=== PATIENT | female | born 1950 | race Caucasian/White ===

== ENCOUNTER 2018-06-22 19:56 | Emergency (ER) | payer MEDICARE, OTHER ==
[2018-06-22 20:04] VITALS: BP 123/80; PULSE 100; RESP 20; TEMP 98.1
[2018-06-22] MEDS ORDERED: CEPHALEXIN 500MG STARTER PACK 4 CAP BTL PO STA (20:25)
--- NOTE | 2018-06-22 20:33 | ED ---
General Adult HPI - General Chief complaint: Extremity Injury, Lower Stated complaint: Leg laceration Time Seen by Provider: 06/22/18 20:13 Source: patient, RN notes reviewed Mode of arrival: ambulatory - History of Present Illness Initial comments: 68-year-old female presents to the emergency department for a chief complaint of injury to the left lower leg. Patient states that about 4 days ago she was walking in her house and accidentally walked into piece of exercise agreement. Patient states it caused a small skin tear of the left leg. Patient states she did not have significant pain however today noticed that it started to have spreading erythema around the area. Patient denies fevers or chills. Denies any streaking redness. Denies any difficulty walking on the leg. Denies any pain with movement of the ankle or knee. No calf pain. Patient has no other complaints at this time including shortness of breath, chest pain, abdominal pain, nausea or vomiting, headache, or visual changes. - Related Data Previous Rx's Medication Instructions Recorded Cephalexin [Keflex] 500 mg PO Q6HR 10 Days cap 06/22/18 Fluconazole [Diflucan] 150 mg PO ONCE PRN #1 tab 06/22/18 Allergies Allergy/AdvReac Type Severity Reaction Status Date / Time codeine AdvReac Nausea & Verified 06/22/18 20:05 Vomiting Review of Systems ROS Statement: Those systems with pertinent positive or pertinent negative responses have been documented in the HPI. ROS Other: All systems not noted in ROS Statement are negative. Past Medical History Additional Past Medical History / Comment(s): celiac disease History of Any Multi-Drug Resistant Organisms: None Reported Past Surgical History: Cholecystectomy Past Psychological History: No Psychological Hx Reported Smoking Status: Never smoker Past Alcohol Use History: Rare Past Drug Use History: None Reported General Exam General appearance: alert, in no apparent distress Head exam: Present: atraumatic, normocephalic, normal inspection Eye exam: Present: normal appearance, PERRL, EOMI. Absent: scleral icterus, conjunctival injection, periorbital swelling ENT exam: Present: normal exam, mucous membranes moist Neck exam: Present: normal inspection, full ROM. Absent: tenderness, meningismus, lymphadenopathy Respiratory exam: Present: normal lung sounds bilaterally. Absent: respiratory distress, wheezes, rales, rhonchi, stridor Cardiovascular Exam: Present: regular rate, normal rhythm, normal heart sounds. Absent: systolic murmur, diastolic murmur, rubs, gallop, clicks Extremities exam: Present: full ROM (Full range motion of the left ankle and knee), tenderness (Minimal tenderness over the area of erythema), normal capillary refill (In the left lower extremity, DP pulse 2+), other (There is a 3 x 6 cm area of erythema surrounding a small skin tear consistent with cellulitis). Absent: pedal edema, joint swelling, calf tenderness Neurological exam: Present: alert, oriented X3, CN II-XII intact Psychiatric exam: Present: normal affect, normal mood Course Vital Signs 06/22/18 20:00 Temperature 98.1 F Pulse Rate 100 Respiratory 20 Rate Blood Pressure 123/80 O2 Sat by Pulse 98 Oximetry Medical Decision Making - Medical Decision Making 60-year-old female presents to the emergency department for a chief complaint of injury to the left lower leg. Patient accidentally hit her leg on exercise department 4 days ago. She started to notice spreading redness and became con cerned for infection. On exam patient is afebrile and has not had any fevers. Patient does have a small skin tear about 1 cm in size noted to the left anterior lower leg. It is also has an area of 3 x 6 cm of spreading redness consistent with cellulitis. Patient will be treated with Keflex for this. Neurovascular status intact. Exam otherwise unremarkable. Patient able to ambulate on it without difficulty. Patient was educated to watch for this worsening. She understands it probably will worsen somewhat in the next 24 hours but should not worsen significantly and thereafter should improve. She will return here if symptoms are not improving. She will follow up with primary care in 1-2 days otherwise. Disposition Clinical Impression: Cellulitis of left leg Disposition: HOME SELF-CARE Condition: Good Instructions (If sedation given, give patient instructions): Cellulitis (ED) Additional Instructions: Please take Keflex as directed. Please follow-up with primary care in 1-2 days. Return here to the emergency department if you have any worsening symptoms or redness is not improving. Prescriptions: Fluconazole [Diflucan] 150 mg PO ONCE PRN #1 tab PRN Reason: vaginitis Cephalexin [Keflex] 500 mg PO Q6HR 10 Days cap Is patient prescribed a controlled substance at d/c from ED?: No Referrals: Gilberto Godinez MD [REFERRING] - 1-2 days Time of Disposition: 20:29
== END 2018-06-22 20:50 | disposition home or self-care (01) ==
LOC: EC 19:56
DX: L03.116 Cellulitis of left lower limb (principal); S81.812A Laceration without foreign body, left lower leg, initial encounter; Z90.49 Acquired absence of other specified parts of digestive tract; Z88.5 Allergy status to narcotic agent; W22.09XA Striking against other stationary object, initial encounter; Y92.009 Unspecified place in unspecified non-institutional (private) residence as the place of occurrence of the external cause; Y93.01 Activity, walking, marching and hiking
CPT/HCPCS: 99282

== ENCOUNTER 2018-08-20 09:05 | Emergency (ER) | payer MEDICARE, OTHER ==
[2018-08-20] MEDS ORDERED: ACETAMINOPHEN TAB 325 MG TAB PO STA (10:11)
--- NOTE | 2018-08-20 10:14 | ED ---
General Adult HPI - General Chief complaint: Extremity Injury, Upper Stated complaint: finger injury Time Seen by Provider: 08/20/18 09:43 Source: patient, RN notes reviewed Mode of arrival: ambulatory Limitations: no limitations - History of Present Illness Initial comments: 68-year-old female presents to the emergency department for a chief complaint of finger injury. Patient states that about 2 months ago she fell and injured her right fourth digit. States that it was healing and doing much better however about one week ago she bumped it on the counter. States that since that time as a much more painful. States the pain is mostly in the PIP joint. States is painful to bend at the PIP joint. States there is some small amount of ecchymosis present. Denies any other injuries. Denies falling or hitting her head.Patient has no other complaints at this time including shortness of breath, chest pain, abdominal pain, nausea or vomiting, headache, or visual changes. - Related Data Home Medications Medication Instructions Recorded Confirmed Naproxen Sodium [Aleve] 440 mg PO DAILY PRN 08/20/18 08/20/18 Allergies Allergy/AdvReac Type Severity Reaction Status Date / Time codeine AdvReac Nausea & Verified 08/20/18 09:57 Vomiting Review of Systems ROS Statement: Those systems with pertinent positive or pertinent negative responses have been documented in the HPI. ROS Other: All systems not noted in ROS Statement are negative. Past Medical History Additional Past Medical History / Comment(s): celiac disease History of Any Multi-Drug Resistant Organisms: None Reported Past Surgical History: Cholecystectomy Past Psychological History: No Psychological Hx Reported Smoking Status: Never smoker Past Alcohol Use History: Rare Past Drug Use History: None Reported General Exam Limitations: no limitations General appearance: alert, in no apparent distress Head exam: Present: atraumatic, normocephalic, normal inspection Eye exam: Present: normal appearance, PERRL, EOMI. Absent: scleral icterus, conjunctival injection, periorbital swelling ENT exam: Present: normal exam, mucous membranes moist Neck exam: Present: normal inspection, full ROM. Absent: tenderness, meningismus, lymphadenopathy Respiratory exam: Present: normal lung sounds bilaterally. Absent: respiratory distress, wheezes, rales, rhonchi, stridor Cardiovascular Exam: Present: regular rate, normal rhythm, normal heart sounds. Absent: systolic murmur, diastolic murmur, rubs, gallop, clicks Extremities exam: Present: tenderness (Tenderness noted over the PIP joint of the right fourth digit), normal capillary refill (Capillary refill less than 2 seconds, radial pulse 2+), other (Sensation intact in the right fourth digit). Absent: full ROM (Patient has full range motion in the DIP joint and MCP joint. She does have some limited range of motion with 45 flexion in the PIP joint of the right fourth digit), pedal edema, joint swelling, calf tenderness Neurological exam: Present: alert, oriented X3, CN II-XII intact Psychiatric exam: Present: normal affect, normal mood Course Vital Signs 08/20/18 09:37 Temperature 97.9 F Pulse Rate 85 Respiratory 16 Rate Blood Pressure 126/75 O2 Sat by Pulse 96 Oximetry Medical Decision Making - Medical Decision Making 60-year-old female presents for right fourth digit pain after hitting a week ago following an injury 2 months ago. She does have some decreased range of motion in the PIP joint but is able to flex it about 45. Minimal edema noted over the fourth IP joint. No erythema or pain noted on the volar finger. No increased warmth. No evidence of infection. Neurovascular status is intact. X-ray shows no acute displaced fracture or dislocation. Patient may have contusion of the finger. At this time discussed Tylenol use for pain as patient cannot take Motrin. Discussed icing the area and following up with primary care orthopedics. Discussed returning here if she has any worsening symptoms. Disposition Clinical Impression: Finger pain, right Disposition: HOME SELF-CARE Condition: Good Instructions (If sedation given, give patient instructions): Finger Sprain (ED) Additional Instructions: Please take Tylenol for pain. You may ice the area. You may wear brace if it is bothering you but try not to immobilize it completely for extended periods. Follow-up with primary care or orthopedics in one to 2 days. Return here if you have any worsening symptoms. Is patient prescribed a controlled substance at d/c from ED?: No Referrals: Ashanti Alvarez MD [STAFF PHYSICIAN] - 1-2 days Sandeep Oliveros MD [Medical Doctor] - 1-2 days Time of Disposition: 10:52
--- NOTE | 2018-08-20 10:23 | XR ---
EXAMINATION TYPE: XR finger RT DATE OF EXAM: 08/20/2018 CLINICAL HISTORY: pain right fourth digit. TECHNIQUE: 3 views of the right fourth digit are submitted. COMPARISON: None FINDINGS: No displaced fracture is seen with certainty. Joint spaces are well-preserved. Correlate for soft tissue injury. IMPRESSION: No acute displaced fracture or dislocation.
[2018-08-20 11:19] VITALS: BP 123/88; PULSE 80; RESP 18; TEMP 97.2
== END 2018-08-20 11:19 | disposition home or self-care (01) ==
LOC: EC 09:05
DX: M79.644 Pain in right finger(s) (principal); R60.0 Localized edema; Z88.5 Allergy status to narcotic agent; W22.8XXA Striking against or struck by other objects, initial encounter
CPT/HCPCS: 99283

== ENCOUNTER → 2019-08-24 | Outpatient (CLI) | payer MEDICARE, OTHER ==
--- NOTE | 2019-08-24 15:22 | XR ---
EXAMINATION TYPE: XR lumbar spine 2 or 3V DATE OF EXAM: 08/24/2019 CLINICAL HISTORY: Pain. TECHNIQUE: Frontal and lateral images of the lumbar spine are obtained. COMPARISON: None FINDINGS: There are 5 lumbar type vertebral bodies identified. Osseous structures somewhat demineral ized. Satisfactory alignment seen. Fairly moderate multilevel disc space narrowing with mild multilev el anterior spurring. No acute displaced fracture. Sacroiliac joints preserved. Some vascular calcula tion overlying abdominal aorta. IMPRESSION: As above.
--- NOTE | 2019-08-24 15:56 | XR ---
EXAMINATION TYPE: XR cervical spine limited DATE OF EXAM: 08/24/2019 COMPARISON: NONE HISTORY: Pain TECHNIQUE: 3 views are submitted. FINDINGS: The odontoid is intact. There are no compression deformities. The prevertebral soft tissue structur es are within normal limits. There is severe degenerative disc disease C4-5 and C5 densities with mo derate changes at C6-C7. Multilevel facet arthropathy. IMPRESSION: 1. Multilevel degenerative disc disease and facet arthropathy.
== END | disposition home or self-care (01) ==
LOC: RADXRMAIN 14:55
PROVIDERS: ATTEND Chiropractor
DX: M99.73 Connective tissue and disc stenosis of intervertebral foramina of lumbar region (principal); M50.321 Other cervical disc degeneration at C4-C5 level; M47.812 Spondylosis without myelopathy or radiculopathy, cervical region
CPT/HCPCS: 72040; 72100

== ENCOUNTER 2019-08-26 22:32 | Emergency (ER) | payer MEDICARE, OTHER ==
[2019-08-26 22:49] VITALS: RESP 18; TEMP 98
--- NOTE | 2019-08-26 23:48 | ED ---
Extremity Problem HPI - General Chief complaint: Extremity Problem,Nontraumatic Stated complaint: Lt foot pain/injury Time Seen by Provider: 08/26/19 22:55 Source: patient Mode of arrival: ambulatory Limitations: no limitations - History of Present Illness Initial comments: Patient is 69-year-old female presenting to the emergency department with a hermelinda f complaint of leg pain. Patient reports about one week ago she twisted to her left ankle. Patient reports initially was asymptomatic but now she has developed pain in her ankle and knee. States around the same time she is also developed cramping and pain the left calf. Patient states prior to onset of symptoms earlier today, she was mowing the grass. She does report history of arthritis and occasionally gets flareups in her lower extremity joints. Patient denies any chest pain or shortness of breath. Denies any history of blood clots. - Related Data Home Medications Medication Instructions Recorded Confirmed Naproxen Sodium [Aleve] 440 mg PO DAILY PRN 08/20/18 08/20/18 Allergies Allergy/AdvReac Type Severity Reaction Status Date / Time codeine AdvReac Nausea & Verified 08/26/19 22:48 Vomiting Review of Systems ROS Statement: Those systems with pertinent positive or pertinent negative responses have been documented in the HPI. ROS Other: All systems not noted in ROS Statement are negative. Past Medical History Additional Past Medical History / Comment(s): celiac disease History of Any Multi-Drug Resistant Organisms: None Reported Past Surgical History: Cholecystectomy Past Psychological History: No Psychological Hx Reported Smoking Status: Never smoker Past Alcohol Use History: Rare Past Drug Use History: None Reported General Exam Limitations: no limitations General appearance: alert, in no apparent distress, obese Head exam: Present: atraumatic, normocephalic, normal inspection Eye exam: Present: normal appearance, PERRL, EOMI Pupils: Present: normal accommodation ENT exam: Present: normal exam, normal oropharynx, mucous membranes moist Neck exam: Present: normal inspection, full ROM Respiratory exam: Present: normal lung sounds bilaterally Cardiovascular Exam: Present: regular rate, normal rhythm, normal heart sounds Extremities exam: Present: full ROM, tenderness (Medial and lateral malleoli tenderness), normal capillary refill, pedal edema (+1 pitting edema.), calf tenderness (Left calf tenderness.), other (+2 dorsalis pedis posterior tibialis bilaterally. No overlying skin changes.). Absent: normal inspection Back exam: Present: normal inspection, full ROM Neurological exam: Present: alert, oriented X3 Psychiatric exam: Present: normal affect, normal mood Skin exam: Present: warm, dry, intact, normal color Course Vital Signs 08/26/19 08/27/19 22:46 00:48 Temperature 98 F 98 F Pulse Rate 91 89 Respiratory 18 18 Rate Blood Pressure 110/57 112/60 O2 Sat by Pulse 97 98 Oximetry Medical Decision Making - Medical Decision Making Patient is 69-year-old female presenting to emergency Department with a chief complaint of leg pain. On exam patient does have mild swelling at the left ankle with mild medial and lateral malleoli tenderness. Full range of motion the ankle. Foot exam unremarkable. She also has left calf tenderness and a cramping sensation. Doesn't have any shortness of breath or chest pain. Ultrasound Doppler performed on the left lower extremity reveals no signs of a DVT. Ankle x-ray reveals no signs of acute fracture or dislocations. I suspect the patient's symptoms are secondary to mowing the lawn prior to onset of symptoms. Patient advised to elevate the foot and alternate between Tylenol and Motrin for pain control. Advised to apply ice compress to minimize his symptoms. Advised to follow primary care. Return parameters thoroughly discussed the patient was understanding and agreeable. Case discussed with physician. Disposition Clinical Impression: Ankle pain, Left leg swelling Disposition: HOME SELF-CARE Condition: Stable Instructions (If sedation given, give patient instructions): Arthralgia (ED), Swollen Joint (ED) Additional Instructions: Follow with her primary care. Alternate between Tylenol and Motrin for pain control. Keep the leg elevated and apply ice compress to the left ankle. Return to emergency department if symptoms worsen. Is patient prescribed a controlled substance at d/c from ED?: No Referrals: Marlo Norris MD [Primary Care Provider] - 1-2 days Time of Disposition: 00:19
--- NOTE | 2019-08-27 00:12 | US ---
EXAMINATION TYPE: US venous doppler duplex LE LT DATE OF EXAM: 08/26/2019 11:14 PM COMPARISON: NONE CLINICAL HISTORY: Cramping in bilateral leg swelling. SIDE PERFORMED: Left TECHNIQUE: The lower extremity deep venous system is examined utilizing real time linear array sonog odessa with graded compression, doppler sonography and color-flow sonography. VESSELS IMAGED: External Iliac Vein (EIV) Common Femoral Vein Deep Femoral Vein Greater Saphenous Vein * Femoral Vein Popliteal Vein Small Saphenous Vein * Proximal Calf Veins (* superficial vessels) Left Leg: Negative for DVT IMPRESSION: No evidence of deep vein thrombosis in the left leg.
--- NOTE | 2019-08-27 00:27 | XR ---
EXAMINATION TYPE: XR ankle complete LT DATE OF EXAM: 08/27/2019 COMPARISON: NONE HISTORY: Pain TECHNIQUE: 3 views FINDINGS: Ankle mortise is anatomic. I see no fracture nor dislocation. Joint spaces are fairly claudia l. There is mild soft tissue swelling around the ankle. IMPRESSION: Mild soft tissue swelling. No fracture seen.
[2019-08-27 00:49] VITALS: BP 112/60; PULSE 89
== END 2019-08-27 00:50 | disposition home or self-care (01) ==
LOC: EC 22:32
DX: M25.572 Pain in left ankle and joints of left foot (principal); M25.472 Effusion, left ankle; M19.90 Unspecified osteoarthritis, unspecified site; Z79.1 Long term (current) use of non-steroidal anti-inflammatories (NSAID); Z88.5 Allergy status to narcotic agent
CPT/HCPCS: 99284

== ENCOUNTER → 2019-09-12 | Outpatient (CLI) | payer MEDICARE, OTHER ==
--- NOTE | 2019-09-12 15:54 | XR ---
EXAMINATION TYPE: XR knee complete LT DATE OF EXAM: 09/12/2019 COMPARISON: NONE HISTORY: Pain TECHNIQUE: Three views are submitted. FINDINGS: Diffuse osteopenia with moderate narrowing of the medial compartment knee joint and hypertrophic spur ring. Small amount of fluid in the suprapatellar bursa with arthropathy of the patellofemoral joint. Osseous structures are intact. No acute fracture seen. IMPRESSION: 1. No acute fracture or dislocation. 2. Small amount of fluid in the suprapatellar bursa. 3. Arthropathy
== END | disposition home or self-care (01) ==
LOC: RADXRMAIN 15:19
PROVIDERS: ATTEND Internal Medicine
DX: M12.862 Other specific arthropathies, not elsewhere classified, left knee (principal)

== ENCOUNTER → 2020-01-02 | Outpatient (CLI) | payer MEDICARE, OTHER ==
--- NOTE | 2020-01-16 11:00 | MM ---
Reason for exam: screening (asymptomatic). Last mammogram was performed 2 years ago. History: Patient is postmenopausal. Physical Findings: A clinical breast exam by your physician is recommended on an annual basis and results should be correlated with mammographic findings. MG 3D Screening Mammo W/Cad Bilateral CC and MLO view(s) were taken. Prior study comparison: December 31, 2017, mammogram, performed at [place]. September 21, 2013, mammogram, performed at [place]. There are scattered fibroglandular densities. Benign appearing bilateral calcifications. No significant changes when compared with prior studies. ASSESSMENT: Benign, BI-RAD 2 RECOMMENDATION: Routine screening mammogram of both breasts in 1 year.
== END | disposition home or self-care (01) ==
LOC: RADMAMWWP 09:25
PROVIDERS: ATTEND Family Medicine
DX: Z12.31 Encounter for screening mammogram for malignant neoplasm of breast (principal)
CPT/HCPCS: 77063; 77067

== ENCOUNTER → 2020-03-01 | Outpatient (CLI) | payer MEDICARE, OTHER ==
--- NOTE | 2020-03-01 15:31 | XR ---
EXAMINATION TYPE: XR chest 2V DATE OF EXAM: 03/01/2020 COMPARISON: NONE TECHNIQUE: PA and lateral views submitted. HISTORY: Shortness of breath FINDINGS: The lungs are clear and there is no pneumothorax, pleural effusion, or focal pneumonia. Heart size normal. No overt failure. Mild hyperinflation. Degenerative change of the spine. Atherosclerotic rangel ge aorta. IMPRESSION: 1. No acute process.
== END | disposition home or self-care (01) ==
LOC: RADXRMAIN 14:31
PROVIDERS: ATTEND Family Medicine
DX: U07.1 COVID-19 (principal); J45.20 Mild intermittent asthma, uncomplicated; R06.02 Shortness of breath
CPT/HCPCS: 71046

== ENCOUNTER 2020-12-02 13:03 | Emergency (ER) | payer MEDICARE ==
--- NOTE | 2020-12-02 13:34 | ED ---
Skin/Abscess/FB HPI - General Chief complaint: Skin/Abscess/Foreign Body Stated complaint: rash on legs Time Seen by Provider: 12/02/20 13:10 Source: patient, RN notes reviewed Mode of arrival: ambulatory Limitations: no limitations - History of Present Illness Initial comments: Patient is a pleasant 70-year-old female presenting to the emergency Department with concerns for rash to bilateral lower legs. Onset of symptoms was around 10 days ago. Patient questioned if she had ringworm and has been using Lotrimin without any improvement. Patient states it is mildly irritated/itchy. No history of similar symptoms previously. Patient had 2 episodes of loose stools/diarrhea. No fevers however patient feels chilled at times. Patient has been checking her temperature. - Related Data Home Medications Medication Instructions Recorded Confirmed Naproxen Sodium [Aleve] 440 mg PO DAILY PRN 08/20/18 08/20/18 Previous Rx's Medication Instructions Recorded Cephalexin [Keflex] 500 mg PO QID #40 cap 12/02/20 Allergies Allergy/AdvReac Type Severity Reaction Status Date / Time codeine AdvReac Nausea & Verified 12/02/20 13:05 Vomiting Review of Systems ROS Statement: Those systems with pertinent positive or pertinent negative responses have been documented in the HPI. ROS Other: All systems not noted in ROS Statement are negative. Constitutional: Reports: as per HPI, chills. Denies: fever Eyes: Denies: eye pain ENT: Denies: ear pain Respiratory: Denies: cough Cardiovascular: Denies: chest pain Endocrine: Denies: fatigue Gastrointestinal: Reports: as per HPI, nausea. Denies: abdominal pain, vomiting Genitourinary: Denies: dysuria Skin: Reports: as per HPI, rash Past Medical History Past Medical History: No Reported History Additional Past Medical History / Comment(s): celiac disease History of Any Multi-Drug Resistant Organisms: None Reported Past Surgical History: Appendectomy, Cholecystectomy Past Psychological History: No Psychological Hx Reported Smoking Status: Never smoker Past Alcohol Use History: None Reported Past Drug Use History: None Reported General Exam Limitations: no limitations General appearance: alert, in no apparent distress Head exam: Present: normocephalic Eye exam: Present: normal appearance Neck exam: Present: normal inspection Respiratory exam: Present: normal lung sounds bilaterally Cardiovascular Exam: Present: regular rate, normal rhythm GI/Abdominal exam: Present: soft. Absent: tenderness Extremities exam: Present: other (Bilateral anterior regalado erythema, right greater than left.). Absent: pedal edema, calf tenderness Neurological exam: Present: alert Psychiatric exam: Present: normal affect, normal mood Skin exam: Present: erythema Course Vital Signs 12/02/20 13:05 Temperature 97.9 F Pulse Rate 96 Respiratory 20 Rate Blood Pressure 113/81 O2 Sat by Pulse 98 Oximetry Medical Decision Making - Medical Decision Making Erythema appears more similar to cellulitis than ringworm infection. Patient updated regarding this. Disposition Clinical Impression: Cellulitis Disposition: HOME SELF-CARE Condition: Stable Instructions (If sedation given, give patient instructions): Cellulitis (ED) Additional Instructions: Please follow-up with primary care physician in the next couple days for recheck. Prescription for antibiotics has been sent to your pharmacy. [id number] antibiotic ointment. Return for pain or fevers, worsening or changing symptoms or other concerns. Prescriptions: Cephalexin [Keflex] 500 mg PO QID #40 cap Is patient prescribed a controlled substance at d/c from ED?: No Referrals: Balbir Diana [Primary Care Provider] - 1-2 days Time of Disposition: 13:33
[2020-12-02 14:53] VITALS: BP 138/88; PULSE 80; RESP 18; TEMP 98
== END 2020-12-02 14:53 | disposition home or self-care (01) ==
LOC: EC 13:03
DX: L03.116 Cellulitis of left lower limb (principal); L03.115 Cellulitis of right lower limb; Z88.5 Allergy status to narcotic agent

== ENCOUNTER 2021-03-14 20:06 | Emergency (ER) | payer MEDICARE ==
[2021-03-14 20:14] VITALS: TEMP 98.6
[2021-03-14] MEDS ORDERED: SODIUM CHLORIDE 0.9% 1,000 ML IV STA (20:50)
[2021-03-14] MEDS ORDERED: ONDANSETRON 4 MG/2 ML VIAL IVP STA (20:50)
[2021-03-14 21:14] LABS: Basophils # (A) 0.1 k/uL (0-0.2); Basophils % (A) 1 %; Eosinophils # (A) 0.2 k/uL (0-0.7); Eosinophils % (A) 2 %; HCT 44.3 % (34.0-46.0); HGB 14.7 gm/dL (11.4-16.0); Lymphocytes % (A) 42 %; MCH 30.1 pg (25.0-35.0); MCHC 33.1 g/dL (31.0-37.0); MCV 90.9 fL (80.0-100.0); Monocytes # (A) 0.3 k/uL (0-1.0); Monocytes % (A) 3 %; Neutrophils # (A) 4.9 k/uL (1.3-7.7); Neutrophils % (A) 51 %; Platelet Count 276 k/uL (150-450); RBC 4.87 m/uL (3.80-5.40); WBC 9.5 k/uL (3.8-10.6)
[2021-03-14 21:29] LABS: Albumin 4.3 g/dL (3.5-5.0); Calcium 9.2 mg/dL (8.4-10.2); Potassium 3.5 mmol/L (3.5-5.1); Total Bilirubin 0.6 mg/dL (0.2-1.3); Total Protein 7.7 g/dL (6.3-8.2)
--- NOTE | 2021-03-14 21:40 | ED ---
Recheck HPI - General Source: patient, RN notes reviewed Mode of arrival: ambulatory Limitations: no limitations <Jerson Cruz - Last Filed: 03/14/21 21:35> <Shweta Loco - Last Filed: 03/18/21 23:40> - General Chief Complaint: Recheck/Abnormal Lab/Rx Stated Complaint: Diarrhea,Headache Time Seen by Provider: 03/14/21 20:17 - History of Present Illness Initial Comments: Patient is a 70-year-old female that presents to the emergency department complaining of several weeks on and off diarrhea. She notes she had an email from [employer] stating that there was a voluntary recall on some produce due to listeria. She notes that she can't track of her symptoms and is been having off and on. She came to the emergency room to get evaluated. Patient was otherwise well-appearing. She noted that she had 1-2 loose stools over the last week. She denied any chest pain shortness of breath headache nausea vomiting c onstipation fever fatigue chills. (Jerson Cruz) - Related Data Home Medications Medication Instructions Recorded Confirmed Naproxen Sodium [Aleve] 440 mg PO DAILY PRN 08/20/18 08/20/18 Previous Rx's Medication Instructions Recorded Cephalexin [Keflex] 500 mg PO QID #40 cap 12/02/20 Ciprofloxacin HCl [Cipro] 500 mg PO Q12HR 7 Days #14 tablet 03/14/21 Fluconazole [Diflucan] 150 mg PO ONCE #2 tab 03/14/21 Allergies Allergy/AdvReac Type Severity Reaction Status Date / Time codeine AdvReac Nausea & Verified 03/14/21 20:14 Vomiting Review of Systems ROS Other: All systems not noted in ROS Statement are negative. <Jerson Cruz - Last Filed: 03/14/21 21:35> ROS Other: All systems not noted in ROS Statement are negative. <Shweta Loco - Last Filed: 03/18/21 23:40> ROS Statement: Those systems with pertinent positive or pertinent negative responses have been documented in the HPI. Past Medical History Past Medical History: No Reported History Additional Past Medical History / Comment(s): celiac disease History of Any Multi-Drug Resistant Organisms: None Reported Past Surgical History: Appendectomy, Cholecystectomy Past Psychological History: No Psychological Hx Reported Smoking Status: Never smoker Past Alcohol Use History: None Reported Past Drug Use History: None Reported <Jerson Cruz - Last Filed: 03/14/21 21:35> General Exam Limitations: no limitations General appearance: alert, in no apparent distress Head exam: Present: atraumatic, normocephalic, normal inspection Eye exam: Present: normal appearance, PERRL, EOMI. Absent: scleral icterus, conjunctival injection, periorbital swelling ENT exam: Present: normal exam, mucous membranes moist Neck exam: Present: normal inspection Respiratory exam: Present: normal lung sounds bilaterally. Absent: respiratory distress, wheezes, rales, rhonchi, stridor Cardiovascular Exam: Present: regular rate, normal rhythm, normal heart sounds. Absent: systolic murmur, diastolic murmur, rubs, gallop, clicks GI/Abdominal exam: Present: soft, normal bowel sounds. Absent: distended, tenderness, guarding, rebound, rigid Extremities exam: Present: normal inspection, full ROM, normal capillary refill. Absent: tenderness, pedal edema, joint swelling, calf tenderness Neurological exam: Present: alert, oriented X3 Psychiatric exam: Present: normal affect, normal mood <Jerson Cruz - Last Filed: 03/14/21 21:35> Course Vital Signs 03/14/21 03/14/21 20:09 23:11 Temperature 98.6 F Pulse Rate 98 79 Respiratory 18 17 Rate Blood Pressure 125/81 139/89 O2 Sat by Pulse 96 100 Oximetry Medical Decision Making - Lab Data Result diagrams: 03/14/21 20:58 03/14/21 20:58 <Jerson Cruz - Last Filed: 03/14/21 21:35> - Lab Data Result diagrams: 03/14/21 20:58 03/14/21 20:58 <Shweta Loco - Last Filed: 03/18/21 23:40> - Medical Decision Making 70-year-old female complaining of diarrhea on and off for the past 2 weeks. Labs, 1 L normal saline ordered. Antibiotic to be sent to pharmacy due to patient's concern for possible listeria. Are unremarkable. Case discussed with Dr. Loco, patient discharge home. (Jerson Cruz) I was available for consultation in the emergency department. The history and physical exam were done by the midlevel provider. I was consulted for this patients care. I reviewed the case with the midlevel provider and based on their presentation of the patient, I agree with the assessment, medical decision making and plan of care as documented. Chart was dictated using [employer] ([employer]) dictation software. Attempts were made to correct any dictation errors however some typographical errors may persist. Patient was seen during a national state of emergency due to the Covid-19 pandemic. (Shweta Loco) - Lab Data Lab Results 03/14/21 03/14/21 Range/Units 20:58 20:58 WBC 9.5 (3.8-10.6) k/uL RBC 4.87 (3.80-5.40) m/uL Hgb 14.7 (11.4-16.0) gm/dL Hct 44.3 (34.0-46.0) % MCV 90.9 (80.0-100.0) fL MCH 30.1 (25.0-35.0) pg MCHC 33.1 (31.0-37.0) g/dL RDW 14.0 (11.5-15.5) % Plt Count 276 (150-450) k/uL MPV 8.0 Neutrophils % 51 % Lymphocytes % 42 % Monocytes % 3 % Eosinophils % 2 % Basophils % 1 % Neutrophils # 4.9 (1.3-7.7) k/uL Lymphocytes # 4.0 (1.0-4.8) k/uL Monocytes # 0.3 (0-1.0) k/uL Eosinophils # 0.2 (0-0.7) k/uL Basophils # 0.1 (0-0.2) k/uL Sodium 140 (137-145) mmol/L Potassium 3.5 (3.5-5.1) mmol/L Chloride 102 (98-107) mmol/L Carbon Dioxide 27 (22-30) mmol/L Anion Gap 11 mmol/L BUN 13 (7-17) mg/dL Creatinine 0.88 (0.52-1.04) mg/dL Est GFR (CKD-EPI)AfAm 78 (>60 ml/min/1.73 sqM) Est GFR (CKD-EPI)NonAf 67 (>60 ml/min/1.73 sqM) Glucose 98 (74-99) mg/dL Calcium 9.2 (8.4-10.2) mg/dL Total Bilirubin 0.6 (0.2-1.3) mg/dL AST 36 (14-36) U/L ALT 34 (4-34) U/L Alkaline Phosphatase 135 H (38-126) U/L Total Protein 7.7 (6.3-8.2) g/dL Albumin 4.3 (3.5-5.0) g/dL Disposition Is patient prescribed a controlled substance at d/c from ED?: No Time of Disposition: 21:40 <Jerson Cruz - Last Filed: 03/14/21 21:35> <Shweta Loco - Last Filed: 03/18/21 23:40> Clinical Impression: Diarrhea Disposition: HOME SELF-CARE Condition: Stable Instructions (If sedation given, give patient instructions): Acute Diarrhea (ED) Additional Instructions: Please return to the Emergency Department if symptoms worsen or any other concerns. Follow-up with primary care 1-2 days. Take antibiotics as prescribed. Prescriptions: Ciprofloxacin HCl [Cipro] 500 mg PO Q12HR 7 Days #14 tablet Fluconazole [Diflucan] 150 mg PO ONCE #2 tab Referrals: Stevan Mobley DO [Primary Care Provider] - 1-2 days
[2021-03-14 23:12] VITALS: BP 139/89; PULSE 79; RESP 17
== END 2021-03-14 23:12 | disposition home or self-care (01) ==
LOC: EC 20:06
DX: R19.7 Diarrhea, unspecified (principal); Z88.5 Allergy status to narcotic agent; Z90.49 Acquired absence of other specified parts of digestive tract
CPT/HCPCS: 99284; 96374; 96361; 36415; 80053; 85025; J2405

== ENCOUNTER → 2021-07-01 | Outpatient (CLI) | payer MEDICARE ==
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
== END | disposition home or self-care (01) ==
LOC: RADBDWWP 07:19
PROVIDERS: ATTEND Family Medicine
DX: M85.89 Other specified disorders of bone density and structure, multiple sites (principal)
CPT/HCPCS: 77080

== ENCOUNTER → 2021-10-24 | Outpatient (CLI) | payer MEDICARE ==
--- NOTE | 2021-10-24 12:14 | XR ---
EXAMINATION TYPE: XR cervical spine comp DATE OF EXAM: 10/24/2021 12:02 PM INDICATION: Patient age:Female; 71 years old; Reason for study: M54.2 CERVICALGIA; COMPARISON: None TECHNIQUE: The cervical spine was imaged in 4 projections. Frontal, lateral, odontoid and bilateral o blique. FINDINGS: The osseous structures show normal alignment without evidence of an acute fracture. There are minimal osteophytes noted throughout the cervical spine on the anterior and lateral aspects of the vertebral bodies. The intervertebral disk spaces grossly preserved. Pedicles are intact. Soft tissues are wi thin normal limits. The odontoid appears intact. IMPRESSION: 1. No fracture or dislocation. 2. Mild degenerative disc disease changes of the cervical spine.
== END | disposition home or self-care (01) ==
LOC: RADXRMAIN 11:37
PROVIDERS: ATTEND Nurse Practitioner Family
DX: M50.30 Other cervical disc degeneration, unspecified cervical region (principal)
CPT/HCPCS: 72050

== ENCOUNTER → 2021-12-05 | Outpatient (CLI) | payer MEDICARE ==
--- NOTE | 2021-12-05 10:49 | XR ---
EXAMINATION TYPE: XR knee complete LT DATE OF EXAM: 12/05/2021 COMPARISON: NONE HISTORY: Pain TECHNIQUE: Three views are submitted. FINDINGS: There is moderate to severe narrowing of the medial compartment and patellofemoral compartment of the knee. Hypertrophic spurring noted. Mild diffuse osteopenia.. Osseous structures are intact. No acu te fracture seen. IMPRESSION: 1. Moderate to severe osteoarthritis.
== END | disposition home or self-care (01) ==
LOC: RADXRMAIN 10:25
PROVIDERS: ATTEND Nurse Practitioner Family
DX: M17.12 Unilateral primary osteoarthritis, left knee (principal)

== ENCOUNTER → 2022-07-02 | Outpatient (CLI) | payer MEDICARE ==
--- NOTE | 2022-07-02 09:52 | XR ---
EXAMINATION TYPE: XR chest 2V DATE OF EXAM: 07/02/2022 COMPARISON: NONE TECHNIQUE: PA and lateral views submitted. HISTORY: chest pain FINDINGS: The lungs are clear and there is no pneumothorax, pleural effusion, or focal pneumonia. Heart size normal and no overt failure. Osseous structures demonstrate hypertrophic and degenerative changes of the spine. Atherosclerotic change aorta. IMPRESSION: 1. No acute process.
== END | disposition home or self-care (01) ==
LOC: RADXRMAIN 09:19
PROVIDERS: ATTEND Nurse Practitioner Family
DX: R05.2 Subacute cough (principal)
CPT/HCPCS: 71046

== ENCOUNTER 2022-07-18 17:16 | Inpatient (IN) | payer OTHER, MEDICARE ==
[2022-07-18] MEDS ORDERED: HYDROmorphone 0.5 MG/0.5 ML SYRINGE IVP STA (17:36)
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
[2022-07-18 18:22] LABS: Basophils % (A) 0 %; Eosinophils % (A) 0 %; HGB 14.6 gm/dL (11.4-16.0); Lymphocytes # (A) 2.7 k/uL (1.0-4.8); Lymphocytes % (A) 23 %; MCH 28.4 pg (25.0-35.0); MCHC 31.8 g/dL (31.0-37.0); MCV 89.3 fL (80.0-100.0); Mean Platelet Volume 8.7; Monocytes # (A) 0.6 k/uL (0-1.0); Monocytes % (A) 5 %; Neutrophils # (A) 8.2 k/uL (1.3-7.7); Neutrophils % (A) 71 %; Platelet Count 263 k/uL (150-450); RBC 5.15 m/uL (3.80-5.40); RDW 13.8 % (11.5-15.5); WBC 11.6 k/uL (3.8-10.6)
[2022-07-18 18:29] LABS: ALT 30 U/L (4-34); AST 27 U/L (14-36); African American GFR (CKD) >90 (>60 ml/min/1.73 sqM); Albumin 4.3 g/dL (3.5-5.0); Alcohol <10 mg/dL; Alkaline Phosphatase 136 U/L (38-126); Anion Gap 11 mmol/L; Blood Urea Nitrogen 21 mg/dL (7-17); Calcium 9.1 mg/dL (8.4-10.2); Carbon Dioxide 25 mmol/L (22-30); Chloride 105 mmol/L (98-107); Glucose 98 mg/dL (74-99); Non-African American GFR(CKD) 86 (>60 ml/min/1.73 sqM); Potassium 4.1 mmol/L (3.5-5.1); Sodium 141 mmol/L (137-145); Total Bilirubin 0.7 mg/dL (0.2-1.3); Total Protein 7.4 g/dL (6.3-8.2)
[2022-07-18 18:52] LABS: Prothrombin Time 10.3 sec (9.0-12.0)
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
[2022-07-18] MEDS ORDERED: HYDROmorphone 1 MG/ML 1 ML SYRINGE IVP STA (19:43)
[2022-07-18] MEDS ORDERED: NALOXONE 0.4 MG/ML 1 ML VIAL IV PRN (20:15)
[2022-07-18] MEDS ORDERED: HYDROmorphone 1 MG/ML 1 ML SYRINGE IVP PRN (20:15)
[2022-07-18] MEDS ORDERED: HYDROmorphone 0.5 MG/0.5 ML SYRINGE IVP PRN (20:15)
[2022-07-18] MEDS: FAMOTIDINE 20 MG TAB PO SCH (20:31)
[2022-07-18] MEDS: SODIUM CHLORIDE 0.9% 1,000 ML IV SCH (20:34)
[2022-07-18] MEDS: ONDANSETRON 4 MG/2 ML VIAL IVP PRN (20:38)
[2022-07-18] MEDS: METOCLOPRAMIDE 5 MG/ML 2 ML VIAL IVP PRN (23:06)
[2022-07-19] MEDS: traMADol 50 MG TAB PO PRN ×2 (08:22→14:16)
[2022-07-19] MEDS: FAMOTIDINE 20 MG TAB PO SCH ×2 (08:23→20:37)
[2022-07-19] MEDS: ONDANSETRON 4 MG/2 ML VIAL IVP PRN ×2 (08:32→18:03)
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
[2022-07-19] MEDS: SODIUM CHLORIDE 0.9% 1,000 ML IV SCH (15:04)
[2022-07-19 15:54] LABS: Amorphous Sediment,Urine Moderate /hpf; Appearance,Urine Turbid (Clear); Bacteria,Urine Rare /hpf; Bilirubin,Urine Negative (Negative); Blood,Urine Small (Negative); Calcium Oxalate Crystals,Urine Rare /hpf; Color,Urine Yellow; Glucose,Urine (UA) Negative (Negative); Ketones,Urine Trace (Negative); Leukocyte Esterase,Urine Moderate (Negative); Mucus,Urine Many /hpf; Nitrite,Urine Negative (Negative); PH, Urine 5.5 (5.0-8.0); Protein,Urine Trace (Negative); RBC,Urine 2 /hpf (0-5); Specific Gravity,Urine 1.038 (1.001-1.035); Squamous Epithelial Cell,Urine 4 /hpf (0-4); Urobilinogen,Urine <2.0 mg/dL (<2.0); WBC,Urine 7 /hpf (0-5)
[2022-07-19 15:56] LABS: Amphetamine Screen,Urine Not Detected (NotDetected); Barbiturate Screen,Urine Not Detected (NotDetected); Benzodiazepines Screen,Urine Not Detected (NotDetected); Cocaine Screen,Urine Not Detected (NotDetected); Methadone Screen, Urine Not Detected (NotDetected); Opiate Screen,Urine Detected (NotDetected); Oxycodone Screen, Urine Not Detected (NotDetected); Phencyclidine Screen,Urine Not Detected (NotDetected); Tricyclic Antidepressant,Urine Not Detected (NotDetected); Urn Cannabinoid Scrn Not Detected (NotDetected)
[2022-07-19] MEDS: METOCLOPRAMIDE 5 MG/ML 2 ML VIAL IVP PRN (16:10)
[2022-07-20] MEDS: SODIUM CHLORIDE 0.9% 1,000 ML IV SCH ×2 (00:13→12:23)
[2022-07-20] MEDS: METOCLOPRAMIDE 5 MG/ML 2 ML VIAL IVP PRN (07:37)
[2022-07-20] MEDS: FAMOTIDINE 20 MG TAB PO SCH ×2 (08:16→20:42)
[2022-07-20 08:29] LABS: Basophils % (A) 0 %; Eosinophils # (A) 0.1 k/uL (0-0.7); Eosinophils % (A) 1 %; HCT 41.4 % (34.0-46.0); HGB 13.2 gm/dL (11.4-16.0); Lymphocytes # (A) 2.2 k/uL (1.0-4.8); Lymphocytes % (A) 24 %; MCH 28.5 pg (25.0-35.0); MCHC 31.8 g/dL (31.0-37.0); MCV 89.6 fL (80.0-100.0); Mean Platelet Volume 8.5; Monocytes # (A) 0.6 k/uL (0-1.0); Monocytes % (A) 6 %; Neutrophils % (A) 67 %; Platelet Count 222 k/uL (150-450); RBC 4.62 m/uL (3.80-5.40); RDW 13.7 % (11.5-15.5); WBC 8.9 k/uL (3.8-10.6)
[2022-07-20 08:45] LABS: ALT 38 U/L (4-34); AST 28 U/L (14-36); African American GFR (CKD) 83 (>60 ml/min/1.73 sqM); Albumin 3.6 g/dL (3.5-5.0); Albumin/Globulin Ratio 1.3; Alkaline Phosphatase 122 U/L (38-126); Anion Gap 6 mmol/L; Bilirubin,Unconjugated 0.8 mg/dL (0.0-1.1); Blood Urea Nitrogen 13 mg/dL (7-17); Calcium 8.8 mg/dL (8.4-10.2); Carbon Dioxide 33 mmol/L (22-30); Chloride 100 mmol/L (98-107); Globulin 2.8 g/dL; Glucose 99 mg/dL (74-99); Non-African American GFR(CKD) 72 (>60 ml/min/1.73 sqM); Potassium 4.8 mmol/L (3.5-5.1); Sodium 139 mmol/L (137-145); Total Bilirubin 0.9 mg/dL (0.2-1.3); Total Protein 6.4 g/dL (6.3-8.2)
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
[2022-07-20] MEDS: LIDOCAINE 4% CREAM 5 GM TUBE TOPICAL PRN (17:25)
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
[2022-07-21] MEDS: SODIUM CHLORIDE 0.9% 1,000 ML IV SCH (03:26)
[2022-07-21] MEDS: FAMOTIDINE 20 MG TAB PO SCH ×2 (08:20→20:18)
[2022-07-21] MEDS: LIDOCAINE 4% CREAM 5 GM TUBE TOPICAL PRN (08:25)
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
[2022-07-21] MEDS ORDERED: HEPARIN SODIUM 1,000 UN/ML (10ML VL) IV PRN (13:14)
[2022-07-21] MEDS ORDERED: HEPARIN SODIUM 1,000 UN/ML (10ML VL) IV ONE (13:14)
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
[2022-07-21 13:56] LABS: Basophils % (A) 0 %; Eosinophils # (A) 0.1 k/uL (0-0.7); Eosinophils % (A) 1 %; HCT 42.6 % (34.0-46.0); Lymphocytes # (A) 2.4 k/uL (1.0-4.8); Lymphocytes % (A) 22 %; MCH 28.8 pg (25.0-35.0); MCHC 32.9 g/dL (31.0-37.0); MCV 87.7 fL (80.0-100.0); Mean Platelet Volume 8.3; Monocytes # (A) 0.4 k/uL (0-1.0); Monocytes % (A) 3 %; Neutrophils # (A) 7.8 k/uL (1.3-7.7); Neutrophils % (A) 72 %; Platelet Count 222 k/uL (150-450); RBC 4.86 m/uL (3.80-5.40); RDW 13.8 % (11.5-15.5); WBC 10.9 k/uL (3.8-10.6)
[2022-07-21 14:21] LABS: Partial Thromboplastin Time 22.4 sec (22.0-30.0); Prothrombin Time 10.8 sec (9.0-12.0)
[2022-07-21] MEDS ORDERED: bisacodyL 5 MG TABLET.DR PO STA (15:22)
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
[2022-07-21] MEDS: HEPARIN SOD,PORK IN 0.45% NACL 25,000 UNIT in 0.45% NACL 1 250ML.BAG IV SCH (15:55)
[2022-07-21] MEDS: ACETAMINOPHEN TAB 325 MG TAB PO PRN (20:25)
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
[2022-07-22] MEDS: HEPARIN SOD,PORK IN 0.45% NACL 25,000 UNIT in 0.45% NACL 1 250ML.BAG IV SCH ×2 (06:14→16:38)
[2022-07-22] MEDS: FAMOTIDINE 20 MG TAB PO SCH ×2 (08:50→19:55)
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
[2022-07-22 10:50] LABS: Basophils # (A) 0.08 X 10*3/uL (0.00-0.10); Basophils % (A) 0.9 %; Eosinophils # (A) 0.17 X 10*3/uL (0.04-0.35); Eosinophils % (A) 1.8 %; HCT 41.5 % (37.2-46.3); HGB 13.4 g/dL (12.0-15.0); Immature Grans, Automated 1.1 %; Lymphocytes # (A) 3.12 X 10*3/uL (0.90-5.00); Lymphocytes % (A) 33.2 %; MCH 29.1 pg (27.0-32.0); MCHC 32.3 g/dL (32.0-37.0); Mean Platelet Volume 11.3 fL (9.5-12.2); Monocytes # (A) 0.53 X 10*3/uL (0.20-1.00); Monocytes % (A) 5.6 %; NRBC Per 100 WBC 0 /100 WBCS (0.0-0.0); Neutrophils # (A) 5.39 X 10*3/uL (1.80-7.70); Neutrophils % (A) 57.4 %; Platelet Count 224 X 10*3/uL (140-440); RBC 4.61 X 10*6/uL (4.10-5.20); RDW 14.6 % (11.5-14.5); WBC 9.39 X 10*3/uL (4.50-10.00)
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
--- NOTE | 2022-07-22 15:48 | XR ---
EXAMINATION TYPE: XR ankle complete LT DATE OF EXAM: 07/22/2022 COMPARISON: NONE HISTORY: Pain FINDINGS: Three views of the ankle demonstrate the ankle mortise to be intact and symmetric. The joint spaces are preserved. The osseous structures are intact. IMPRESSION: 1. No definite acute fracture or dislocation, if symptoms persist follow-up study in 7 to 10 days wou ld be suggested.
--- NOTE | 2022-07-22 19:20 | CA ---
Transthoracic Echo Report Name: Michelle Butler Age: 72 Gender: F : 1950 Exam Date: 07/22/2022 17:13 Exam Location: [facility] Ht (in): 63 Wt (lb): 235 Ordering Physician: Nilay Keys Attending/Referring Phys: Legal Contracts Specialist Tiffanie Rice RDCS Procedure CPT: Indications: evaluate for RV dysfunction Cardiac Hx: Technical Quality: Fair Contrast 1: Total Dose (mL): Contrast 2: Total Dose (mL): MEASUREMENTS (Male / Female) Normal Values 2D ECHO LV Diastolic Diameter PLAX 4.2 cm 4.2 - 5.9 / 3.9 - 5.3 cm LV Systolic Diameter PLAX 3.3 cm IVS Diastolic Thickness 1.2 cm 0.6 - 1.0 / 0.6 - 0.9 cm LVPW Diastolic Thickness 1.1 cm 0.6 - 1.0 / 0.6 - 0.9 cm LV Relative Wall Thickness 0.5 RV Internal Dim ED PLAX 2.8 cm LA Systolic Diameter LX 3.8 cm 3.0 - 4.0 / 2.7 - 3.8 cm LA Volume 41.8 cm??? 18 - 58 / 22 - 52 cm??? M-MODE Aortic Root Diameter MM 2.9 cm MV E Point Septal Separation 0.8 cm AV Cusp Separation MM 1.9 cm DOPPLER AV Peak Velocity 135.5 cm/s AV Peak Gradient 7.3 mmHg MV Area PHT 4.1 cm??? Mitral E Point Velocity 75.4 cm/s Mitral A Point Velocity 87.8 cm/s Mitral E to A Ratio 0.9 MV Deceleration Time 184.6 ms MV E' Velocity 8.3 cm/s Mitral E to MV E' Ratio 9.1 TR Peak Velocity 216.3 cm/s TR Peak Gradient 18.7 mmHg Right Ventricular Systolic Press 23.7 mmHg FINDINGS Left Ventricle Left ventricular ejection fraction is estimated at 55-60 %. Mildly increased septal wall thickness. Mildly increased posterior wall thickness. Left ventricular cavity size normal. Right Ventricle Normal right ventricular size and function. Right ventricular systolic pressure within normal limits. Right ventricular systolic pressure estimated at 24 mm hg. Right Atrium Normal right atrial size. Left Atrium Normal left atrial size. Mitral Valve Structurally normal mitral valve.mild mitral regurgitation. Aortic Valve Trileaflet aortic valve. No aortic valve stenosis or regurgitation. Tricuspid Valve Structurally normal tricuspid valve. Mild tricuspid regurgitation. Pulmonic Valve Structurally normal pulmonic valve. No pulmonic regurgitation. Pericardium Normal pericardium. No pericardial effusion. Aorta Normal size aortic root and proximal ascending aorta. CONCLUSIONS 1. Normal left ventricle size and systolic function with left ventricle hypertrophy 2. Normal right ventricular pressure 3. Mild mitral and tricuspid regurgitation Previewed by: Dr. Yola Dickson MD (Electronically Signed) Final Date: 22 Jul 2022 19:19
[2022-07-22] MEDS: ACETAMINOPHEN TAB 325 MG TAB PO PRN (19:55)
[2022-07-23] MEDS: HEPARIN SOD,PORK IN 0.45% NACL 25,000 UNIT in 0.45% NACL 1 250ML.BAG IV SCH (03:20)
[2022-07-23] MEDS: FAMOTIDINE 20 MG TAB PO SCH (08:35)
[2022-07-23] MEDS ORDERED: APIXABAN 5 MG TAB PO SCH (09:00)
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
[2022-07-23 11:30] LABS: African American GFR (CKD) 100.3 (60.0-200.0); Anion Gap 12.5 mmol/L (10.00-18.00); BUN/Creat Ratio 13.86 Ratio (12.00-20.00); Blood Urea Nitrogen 9.7 mg/dL (9.0-27.0); Calcium 8.4 mg/dL (8.7-10.3); Carbon Dioxide 21.5 mmol/L (20.0-27.5); Non-African American GFR(CKD) 86.6 (60.0-200.0); Potassium 3.7 mmol/L (3.5-5.5)
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
[2022-07-23 14:14] VITALS: BP 184/71; PULSE 94; RESP 20; TEMP 98
== END 2022-07-23 14:48 | disposition home health service (06) | DRG 564 ==
LOC: EC 17:16 → 6NMEDSUR 20:15 → OBSVTOIN 07-22 10:44
PROVIDERS: ADMIT Surgery; ATTEND Surgery
DX: S22.21XA Fracture of manubrium, initial encounter for closed fracture (principal); I26.99 Other pulmonary embolism without acute cor pulmonale; N39.0 Urinary tract infection, site not specified; I82.432 Acute embolism and thrombosis of left popliteal vein; I82.4Y2 Acute embolism and thrombosis of unspecified deep veins of left proximal lower extremity; I82.4Z2 Acute embolism and thrombosis of unspecified deep veins of left distal lower extremity; S22.20XA Unspecified fracture of sternum, initial encounter for closed fracture; K44.9 Diaphragmatic hernia without obstruction or gangrene; V43.52XA Car driver injured in collision with other type car in traffic accident, initial encounter; K76.0 Fatty (change of) liver, not elsewhere classified; K90.0 Celiac disease; K21.9 Gastro-esophageal reflux disease without esophagitis; R79.89 Other specified abnormal findings of blood chemistry; J30.2 Other seasonal allergic rhinitis; I08.1 Rheumatic disorders of both mitral and tricuspid valves; K57.30 Diverticulosis of large intestine without perforation or abscess without bleeding; M19.90 Unspecified osteoarthritis, unspecified site; S29.8XXA Other specified injuries of thorax, initial encounter; Z86.711 Personal history of pulmonary embolism; Y92.410 Unspecified street and highway as the place of occurrence of the external cause; Z79.899 Other long term (current) drug therapy; Z88.5 Allergy status to narcotic agent; S20.319A Abrasion of unspecified front wall of thorax, initial encounter
CPT/HCPCS: 36415; 71260; 71275; 72125; 74177; 80048; 80053; 80076; 80306; 80320; 81001; 83880; 84484; 85025; 85610; 85730; 86850; 86900; 86901; 87086; 93005; 93306; 94760; 96374; 96375; 96376; 99285

== ENCOUNTER → 2022-07-30 | Outpatient (CLI) | payer MEDICARE ==
--- NOTE | 2022-07-30 13:39 | XR ---
EXAMINATION TYPE: XR shoulder complete RT DATE OF EXAM: 07/30/2022 COMPARISON: NONE HISTORY: Pain TECHNIQUE: Three views are submitted. FINDINGS: The osseous structures are intact. There is no acute fracture or dislocation. The AC joint is maint ained. IMPRESSION: 1. No acute process.
== END | disposition home or self-care (01) ==
LOC: RADXRMAIN 13:17
PROVIDERS: ATTEND Nurse Practitioner Family
DX: M25.511 Pain in right shoulder (principal)

== ENCOUNTER → 2022-09-29 | Outpatient (CLI) | payer OTHER, MEDICARE ==
[2022-09-29 14:13] LABS: African American GFR (CKD) >90 (>60 ml/min/1.73 sqM); Blood Urea Nitrogen 12 mg/dL (7-17); Non-African American GFR(CKD) 87 (>60 ml/min/1.73 sqM)
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
== END | disposition home or self-care (01) ==
LOC: RADCTMAIN 13:39
PROVIDERS: ATTEND Internal Medicine Critical Care Medicine
DX: I26.99 Other pulmonary embolism without acute cor pulmonale (principal)
CPT/HCPCS: 82565; 84520; 71275; 36415; Q9967

== ENCOUNTER → 2023-03-26 | Outpatient (CLI) | payer MEDICARE ==
--- NOTE | 2023-03-26 15:59 | CT ---
EXAMINATION TYPE: CT sinus wo con DATE OF EXAM: 03/26/2023 COMPARISON: NONE HISTORY: runny nose x 3.[address] months[address] Chronic maxillary sinusitis. CT DLP: 573.0 mGycm. Automated Exposure Control for Dose Reduction was Utilized. TECHNIQUE: CT scan of the sinuses is performed without contrast, axial images are obtained, coronal r eformatted images are also reviewed. FINDINGS: The paranasal sinuses including the frontal, ethmoid, sphenoid, and maxillary sinuses bila terally are well-aerated without abnormal opacification. The surgically treated ostiomeatal complex is patent bilaterally on the coronal images. Nasal septum is slightly deviated to right of midline. Visualized portion of mastoid air cells show no abnormal opacification. The globes are intact bilate rally. IMPRESSION: The sinuses are clear and the ostiomeatal complex is patent bilaterally.
== END | disposition home or self-care (01) ==
LOC: RADCTMAIN 14:57
PROVIDERS: ATTEND Otolaryngology
DX: J32.0 Chronic maxillary sinusitis (principal)
CPT/HCPCS: 70486

== ENCOUNTER → 2023-05-06 | Outpatient (CLI) | payer MEDICARE ==
--- NOTE | 2023-05-06 21:57 | MM ---
Reason for Exam: Screening (asymptomatic). Last mammogram was performed 1 year(s) and 10 month(s) ago. Patient History: Menarche at age 11. First Full-Term at age 17. Hysterectomy at age 37. Postmenopausal. Risk Values: Kinjal 5 year model risk: 1.4%. NCI Lifetime model risk: 3.4%. Prior Study Comparison: 12/31/2017 Screening Mammogram, [place]. 01/02/2020 Bilateral Screening Mammogram, [facility]. 06/21/2021 Bilateral Screening Mammogram, [facility]. Tissue Density: There are scattered fibroglandular densities. Findings: Analyzed By CAD. Subareolar density on the right has increased and further evaluation is recommended. Benign vascular and well cystic calcifications are redemonstrated. Otherwise, no significant change. Overall Assessment: Incomplete: need additional imaging evaluation, BI-RAD 0 Management: Special View Mammogram of the right breast. Diagnostic Breast Ultrasound of the right breast. Targeted ultrasound to include subareolar and periareolar scanning. [facility] will attempt to contact patient to return for supplemental views and ultrasound if indicated. Electronically signed and approved by: Polo Hernandes M.D. Radiologist
== END | disposition home or self-care (01) ==
LOC: RADMAMWWP 07:25
PROVIDERS: ATTEND Family Medicine
DX: Z12.31 Encounter for screening mammogram for malignant neoplasm of breast (principal); Z78.0 Asymptomatic menopausal state
CPT/HCPCS: 77063; 77067

== ENCOUNTER → 2023-05-08 | Outpatient (CLI) | payer MEDICARE ==
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
== END | disposition home or self-care (01) ==
LOC: RADMAMWWP 10:11
PROVIDERS: ATTEND Family Medicine
DX: R92.331 Mammographic heterogeneous density, right breast (principal); R92.8 Other abnormal and inconclusive findings on diagnostic imaging of breast; Z78.0 Asymptomatic menopausal state
CPT/HCPCS: 77065; 76642; G0279; 77061

== ENCOUNTER → 2023-09-11 | Outpatient (CLI) | payer MEDICARE ==
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
== END | disposition home or self-care (01) ==
LOC: RADUSWWP 15:28
PROVIDERS: ATTEND Family Medicine
DX: R35.0 Frequency of micturition (principal); R39.198 Other difficulties with micturition
CPT/HCPCS: 76857

== ENCOUNTER → 2023-09-16 | Outpatient (CLI) | payer MEDICARE ==
[2023-09-16 14:51] LABS: African American GFR (CKD) 84 (>60 ml/min/1.73 sqM); Blood Urea Nitrogen 14 mg/dL (7-17); Non-African American GFR(CKD) 73 (>60 ml/min/1.73 sqM)
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
== END | disposition home or self-care (01) ==
LOC: RADCTMAIN 13:37
PROVIDERS: ATTEND Family Medicine
DX: K57.30 Diverticulosis of large intestine without perforation or abscess without bleeding (principal); K76.0 Fatty (change of) liver, not elsewhere classified; K44.9 Diaphragmatic hernia without obstruction or gangrene
CPT/HCPCS: 82565; 84520; 74177; 36415; Q9967

== ENCOUNTER → 2023-11-27 | Outpatient (CLI) | payer MEDICARE ==
--- NOTE | 2023-11-27 11:20 | USB ---
Reason for Exam: Follow-up at short interval from prior study. Patient History: Menarche at age 11. First Full-Term at age 17. Hysterectomy at age 37. Postmenopausal. Risk Values: Kinjal 5 year model risk: 1.4%. NCI Lifetime model risk: 3.4%. Technique: Method: Targeted. Prior Study Comparison: 06/21/2021 Bilateral Screening Mammogram, [facility]. 05/06/2023 Bilateral MG 3D screening mammo w/cad, [facility]. 05/08/2023 Right MG 3D work up w/cad RT, [facility]. Findings: The lateral section of the breast of the right breast, the axilla of the right breast and the retroareolar of the right breast were scanned. Renal ultrasound lateral aspect right breast 6:00 to 10:00 including scanning of the subareolar region and axilla. In the subareolar/periareolar region, there is a stable mildly lobulated 8 mm cyst as compared to the prior study. Some minimal scattered duct ectasia is noted. No other suspicious solid or cystic lesion. No axillary lymphadenopathy. Overall Assessment: Probably benign, BI-RAD 3 Management: Diagnostic Mammogram of both breasts in 6 months. Total one-year follow-up right breast and annual exam of the left breast. A clinical breast exam by your physician is recommended on an annual basis and results should be correlated with mammographic findings. This exam should not preclude additional follow-up of suspicious palpable abnormalities. Results were given to the patient verbally at the time of exam. Electronically signed and approved by: Polo Hernandes M.D. Radiologist
--- NOTE | 2023-11-27 13:00 | MM ---
Reason for Exam: Follow-up at short interval from prior study. Last screening mammogram was performed 7 month(s) ago. Patient History: Menarche at age 11. First Full-Term at age 17. Hysterectomy at age 37. Postmenopausal. Risk Values: Kinjal 5 year model risk: 1.4%. NCI Lifetime model risk: 3.4%. Prior Study Comparison: 12/31/2017 Screening Mammogram, [place]. 01/02/2020 Bilateral Screening Mammogram, [facility]. 06/21/2021 Bilateral Screening Mammogram, [facility]. 05/06/2023 Bilateral MG 3D screening mammo w/cad, [facility]. 05/08/2023 Right MG 3D work up w/cad RT, [facility]. 05/08/2023 Right US breast workup limited RT, [facility]. Tissue Density: Right: There are scattered areas of fibroglandular density. Findings: Analyzed By CAD. Benign vascular, secretory, and oil cyst calcifications. The oil cyst calcifications have progressed in the interval. Nodular area of central outer asymmetric density on the CC view, middle depth incompletely disperses and can be further evaluated with ultrasound. Overall Assessment: Incomplete: need additional imaging evaluation, BI-RAD 0 Management: Diagnostic Breast Ultrasound of the right breast. Electronically signed and approved by: Polo Hernandes M.D. Radiologist
== END | disposition home or self-care (01) ==
LOC: RADMAMWWP 09:53
PROVIDERS: ATTEND Family Medicine
DX: R93.89 Abnormal findings on diagnostic imaging of other specified body structures
CPT/HCPCS: 77061; 77065

== ENCOUNTER → 2024-01-05 | Outpatient (CLI) | payer MEDICARE ==
--- NOTE | 2024-01-06 08:13 | BD ---
EXAMINATION TYPE: Axial Bone Density DATE OF EXAM: 01/05/2024 CLINICAL HISTORY: 73 years old Female. ICD-10 CODE: M85.80 DISORDER OF BONE Height: 62.5 Weight: 231 FRAX RISK QUESTIONS: Family History (Parent hip fracture): no History of Fracture in Adulthood: yes Secondary Osteoporosis: yes 3. Menopause before 45: yes 4. Malnutrition: yes RISK FACTORS HISTORY OF: Surgery to Spine/Hip(right/left)/Wrist (right/left): no MEDICATIONS: Thyroid Medications: no Osteoporosis Medications: no EXAM MEASUREMENTS: Bone mineral densitometry was performed using the [email or web address] System. Bone mineral density as measured about the Lumbar spine is: ----- L1-L4(G/cm2): 1.021 T Score Values are as follows: ----- L1: -1.8 ----- L2: -1.9 ----- L3: -0.7 ----- L4: -1.2 ----- L1-L4: -1.3 Z Score Values are as follows: ----- L1: -1.2 ----- L2: -1.3 ----- L3: -0.2 ----- L4: -0.7 ----- L1-L4: -0.8 Bone mineral density has: Decreased -1.0% since study of: 07/01/2021 Bone mineral density about the R hip (g/cm2): 0.941 Bone mineral density about the L hip (g/cm2): 0.897 T Score values are as follows: -----R Neck: -1.3 -----L Neck: -2.2 -----R Total: -0.5 -----L Total: -0.9 Z Score values are as follows: -----R Neck: -0.2 -----L Neck: -1.1 -----R Total: 0.3 -----L Total: -0.1 Bone mineral density has: Decreased -0.6% since study of: 07/01/2021 FRAX%s: The graph provided illustrates a 19.0% chance for a major osteoporotic fx and a 4.5% chance f or the hips probability for fx in 10 years time. IMPRESSION: Osteopenia (T Score between -2.5 and -1). There is slightly increased risk of fracture and the patient may be considered for treatment. Re-Screen 2-5 years. NOTE: T-SCORE=SD OF THE YOUNG ADULT MEAN. [facility], , 01/06/2024 8:11 AM
== END | disposition home or self-care (01) ==
LOC: RADBDWWP 10:58
PROVIDERS: ATTEND Family Medicine
CPT/HCPCS: 77080

== ENCOUNTER 2024-01-19 05:56 | Day surgery (SDC) | payer MEDICARE ==
[2023-11-26 11:43] VITALS: BMI 41.6
[2024-01-19] MEDS ORDERED: LIDOCAINE 1% (10MG/ML) FOR IV START INTRADERMA PRN (06:35)
[2024-01-19] MEDS: LACTATED RINGERS 1,000 ML IV SCH (06:52)
[2024-01-19] MEDS ORDERED: LIDOCAINE 2% (PF) 20 MG/ML 5 ML VIAL ONE (06:58)
[2024-01-19] MEDS ORDERED: PROPOFOL 10 MG/ML 20 ML VIAL IV ONE (06:58)
[2024-01-19 06:59] VITALS: TEMP 97
[2024-01-19] MEDS: IV FLUID CONTINUATION 1,000 ML IV ONE (07:02)
--- NOTE | 2024-01-19 07:23 | P.PCN ---
Date of Procedure: 01/19/24 Procedure(s) Performed: Brief history: Patient is a pleasant 73-year-old white female scheduled for an elective upper endoscopy as well as colonoscopy as a part of evaluation of of longstanding history of GERD and screening for colon cancer. Procedure performed: Esophagogastroduodenoscopy with biopsy Colonoscopy Preoperative diagnosis: Longstanding history of GERD Screening for colon cancer Anesthesia: MAC Procedure: After informed consent was obtained from the patient was brought into the endoscopy unit and IV sedation was administered by anesthesia under continuous monitoring. Initially upper endoscopy was done. The Olympus GF 160 video endoscope was inserted inserted into the mouth and esophagus intubated without any difficulty and was gradually advanced into the stomach and duodenum and carefully examined. The bulb and second part of the duodenum appeared normal. The scope was then withdrawn into the stomach adequately insufflated with air and upon careful examination the antrum had mild gastritis and biopsies were done from this area. Mucosa body, cardia and fundus appeared normal. The scope was then withdrawn into the esophagus. Moderate size hiatal hernia noted. The GE junction was located at 34 cm to the incisors. It appeared regular with superficial erosions consistent with LA grade B reflux esophagitis. There was no evidence of Trent's esophagus. Biopsies were done from the distal esophagus. Rest of the esophagus appeared normal. Patient tolerated the procedure well. At this time the patient continued to remain sedation. Initial digital rectal examination was normal. Olympus CF 160 video colonoscope was then inserted into the rectum and gradually advanced to the cecum without any difficulty. Careful examination was performed as the scope was gradually being withdrawn. The prep was excellent. The cecum, ascending colon, transverse colon, descending colon, sigmoid colon and rectum appeared normal. Katter sigmoid diverticulosis. Retroflexion was performed in the rectum and grade 2 internal hemorrhoids were noted. Patient tolerated the procedure well. Impression: 1. Upper endoscopy revealed mild antral gastritis, moderate hiatal hernia and LA grade B reflux esophagitis 2. Colonoscopy revealed scattered sigmoid diverticulosis and grade 2 internal hemorrhoids Recommendations: Findings of this examination were discussed with the patient as well as her family. She was advised to follow-up with the biopsy results. Advised to start back on omeprazole 20 mg daily and follow antireflux measures. Recommended repeat screening colonoscopy at age 80.
[2024-01-19 07:41] VITALS: BP 129/77; PULSE 89; RESP 16
== END 2024-01-19 08:20 | disposition home or self-care (01) ==
LOC: ORWHC2ENDO 05:56
PROVIDERS: ATTEND Internal Medicine Gastroenterology
DX: Z12.11 Encounter for screening for malignant neoplasm of colon (principal); K57.30 Diverticulosis of large intestine without perforation or abscess without bleeding; K64.1 Second degree hemorrhoids; K29.50 Unspecified chronic gastritis without bleeding; K21.9 Gastro-esophageal reflux disease without esophagitis; K22.10 Ulcer of esophagus without bleeding; K44.9 Diaphragmatic hernia without obstruction or gangrene; K90.0 Celiac disease; Z86.711 Personal history of pulmonary embolism; Z86.718 Personal history of other venous thrombosis and embolism; Z88.5 Allergy status to narcotic agent
CPT/HCPCS: 88305; 88342; 43239; J2704; J2003; G0121

== ENCOUNTER → 2024-05-23 | Outpatient (CLI) | payer MEDICARE ==
--- NOTE | 2024-05-23 11:36 | MM ---
Reason for Exam: Follow-up at short interval from prior study. Last mammogram was performed 1 year(s) and 1 month(s) ago. Patient History: Menarche at age 11. First Full-Term at age 17. Hysterectomy at age 37. Postmenopausal. Risk Values: Kinjal 5 year model risk: 1.4%. NCI Lifetime model risk: 3.2%. Prior Study Comparison: 06/21/2021 Bilateral Screening Mammogram, [facility]. 05/06/2023 Bilateral MG 3D screening mammo w/cad, [facility]. 05/08/2023 Right MG 3D work up w/cad RT, [facility]. 05/08/2023 Right US breast workup limited RT, [facility]. 11/27/2023 Right MG 3D diag mammo w/cad RT, [facility]. 11/27/2023 Left US breast limited RT, [facility]. Tissue Density: There are scattered areas of fibroglandular density. Findings: Analyzed By CAD. Benign oil cysts and vascular calcifications are redemonstrated, right greater than left. There have been progressive calcifications related to the patient's benign oil cysts on the right. Benign round calcifications on the left. No suspicious microcalcifications or other discrete abnormality is seen. Overall Assessment: Benign, BI-RAD 2 Management: Screening Mammogram of both breasts in 1 year. Results were given to the patient verbally at the time of exam. Patient should continue monthly self-breast exams. A clinical breast exam by your physician is recommended on an annual basis. This exam should not preclude additional follow-up of suspicious palpable abnormalities. Note on Kinjal scores and lifetime risk: 1. A Kinjal score greater than 3% is considered moderate risk. If this is the case, consider specialist referral to assess eligibility for a risk reducing agent. 2. If overall lifetime risk for the development of breast cancer is 20% or higher, the patient may qualify for future screening with alternating mammogram and breast MRI. [facility], , 05/23/2024 11:33 AM. Electronically signed and approved by: Polo Hernandes M.D. Radiologist
== END | disposition home or self-care (01) ==
LOC: RADMAMWWP 10:51
PROVIDERS: ATTEND Family Medicine
DX: R92.8 Other abnormal and inconclusive findings on diagnostic imaging of breast (principal); R92.323 Mammographic fibroglandular density, bilateral breasts; Z78.0 Asymptomatic menopausal state
CPT/HCPCS: 77066; G0279; 77062

== ENCOUNTER → 2024-09-28 | Outpatient (CLI) | payer MEDICARE ==
--- NOTE | 2024-09-28 08:52 | US ---
EXAMINATION TYPE: US thyroid st tissue head/neck DATE OF EXAM: 09/28/2024 COMPARISON: NONE CLINICAL INDICATION: Female, 74 years old with history of E04.9 Nontoxic goiter; Enlarged thyroid TECHNIQUE: Grayscale and color Doppler imaging of the thyroid gland. FINDINGS: GLAND SIZE: Right Lobe: 3.8 x 1.3 x 1.3 cm Overall Parenchyma: homogeneous Left Lobe: 3.5 x 1.1 x 1.3 cm Overall Parenchyma: homogeneous Isthmus Thickness: 0.21 cm NODULES RIGHT: # of nodules measured on right: One less than 5 mm nodule seen. Measures up to 0.4 cm. TR 3. LEFT: # of nodules measured on left: One less than 5 mm nodule seen. Measures up to 0.5 cm. TR 3. ISTHMUS: # of nodules measured in the isthmus: 0 Bilateral neck scanned, Hypoechoic area with hyperechoic center seen right neck: 1.5 x 0.9 x 0.5 cm. Hypoechoic area seen left neck: 1.0 x 1.0 x 0.4 cm. These both consistent with benign-appearing lymph nodes. IMPRESSION: 1. Normal-sized thyroid gland with a couple of TR3 subcentimeter nodules. No follow-up recommended. 2. Couple of benign-appearing bilateral neck lymph nodes identified. Highest TI-RADS level nodule reported: ACR TI-RADS LEVEL: TI-RADS 3 - Mildly Suspicious: Follow if > 1.5 cm, FNA if > 2.5 cm TI-RADS assessment score and recommendation for follow-up based on appropriate scoring and treatment protocols. TR1 Benign No FNA TR2 Not suspicious No FNA TR3: If nodule size is ? 2.5 cm, FNA is recommended. If nodule size is ? 1.5 cm, follow-up imaging at 1, 3, and 5 years is recommended. TR4: If nodule size is ? 1.5 cm, FNA is recommended. If nodule size is ? 1.0 cm, follow-up imaging at 1, 2, 3, and 5 years is recommended. TR5: If nodule size is ? 1.0 cm, FNA is recommended. If nodule size is ? 0.5 cm, annual follow-up for up to 5 years is recommended. TR 1 thyroid nodules have a 0.3 % risk of malignancy. TR 2 thyroid nodules have a 1.5 % risk of malignancy. TR 3 thyroid nodules have a 4.8 % risk of malignancy. TR 4 thyroid nodules have a 9.1 % risk of malignancy. TR 5 thyroid nodules have a 35 % risk of malignancy. [email or web address], , 09/28/2024 8:50 AM
== END | disposition home or self-care (01) ==
LOC: RADUSWWP 08:22
DX: E04.9 Nontoxic goiter, unspecified (principal)
CPT/HCPCS: 76536